=== PATIENT | male | born 1995 | race Caucasian/White ===

== ENCOUNTER 2021-01-19 12:15 | Observation (INO) ==
[2021-01-19] MEDS ORDERED: 0.9 % Sodium Chloride 1,000 ML IVC SCH (14:46)
[2021-01-19] MEDS ORDERED: cefOXitin 2,000 MG in Water for inj. (sterile) 20 ML IVP ONE (14:47)
[2021-01-19] MEDS ORDERED: Lidocaine HCL 4 ML Topical Solution (Laryng-O-Jet Kit Sterile Pak) TP ONE (16:21)
[2021-01-19] MEDS ORDERED: *HR* FentaNYL (PF) 100 MCG/2 ML VIAL ONE (16:21)
[2021-01-19] MEDS ORDERED: *HR* Propofol 200 MG/20 ML VIAL IVP ONE ×2 (16:21→16:49)
[2021-01-19] MEDS ORDERED: Ondansetron 4 MG/2 ML VIAL ONE (16:21)
[2021-01-19] MEDS ORDERED: *HR* Succinylcholine 200 MG/10 ML VIAL IVP ONE (16:21)
[2021-01-19] MEDS ORDERED: *HR* Rocuronium Bromide 50 MG/5 ML VIAL ONE (16:21)
[2021-01-19] MEDS ORDERED: Lidocaine -MPF 2% 2 ML VIAL ONE (16:21)
[2021-01-19] MEDS ORDERED: *HR* Midazolam HCl 2 MG/2 ML VIAL ONE (16:21)
[2021-01-19] MEDS ORDERED: Sugammadex Sodium 200 MG/2 ML VIAL IV ONE (16:47)
[2021-01-19] MEDS ORDERED: Ondansetron 4 MG/2 ML VIAL IVP PRN ×2 (16:49→19:09)
[2021-01-19] MEDS ORDERED: *HR* HYDROmorphone PF 0.5 MG/0.5 ML SYRINGE IVP PRN (16:49)
[2021-01-19] MEDS ORDERED: *HR* HYDROMORPHONE 2 MG/ML VIAL ONE (16:50)
[2021-01-19] MEDS ORDERED: *HR* Magnesium Sulfate 1 GM/2 ML VIAL ONE (16:52)
[2021-01-19] MEDS ORDERED: Famotidine 20 MG/2 ML VIAL ONE (16:54)
[2021-01-19] MEDS ORDERED: Acetaminophen IV 1,000 MG/100 ML BAG IVPB ONE (16:54)
[2021-01-19] MEDS ORDERED: CefOXitin 1,000 MG VIAL ONE (16:56)
[2021-01-19] MEDS ORDERED: Ketorolac 30 MG/ML VIAL ONE (17:31)
[2021-01-19] MEDS: 0.9 % Sodium Chloride 1,000 ML IVC SCH (19:52)
[2021-01-19] MEDS: *HR* OxyCODONE/APAP 5/325 TABLET PO PRN (22:41)
[2021-01-20] MEDS: cefOXitin 2,000 MG in Water for inj. (sterile) 20 ML IVP SCH ×2 (00:30→07:58)
[2021-01-20 07:32] VITALS: BP 112/68
[2021-01-20] MEDS: *HR* OxyCODONE/APAP 5/325 TABLET PO PRN (07:59)
[2021-01-20] MEDS: 0.9 % Sodium Chloride 1,000 ML IVC SCH (09:00)
[2021-01-20] MEDS ORDERED: Ibuprofen 800 MG TABLET PO ONE (09:04)
== END 2021-01-20 10:42 | disposition home or self-care (01) ==
LOC: CDU → 3ANU 18:11
PROVIDERS: ADMIT Surgery; ATTEND Surgery